=== PATIENT | female | born 1975 | race Caucasian/White ===

== ENCOUNTER 2017-06-30 22:00 | Emergency (ER) | payer SELFPAY ==
[~2017-06-30] VITALS: Ht 160 cm; Wt 79.4 kg
--- NOTE | 2017-06-30 22:10 | NUR ---
BB SELF; "BILAT EAR PAIN AND THROAT PAIN X 1 MONTH". PATIENT IS AFEBRILE. VSS
[2017-07-01] MEDS ORDERED: TRAMADOL HCL 50 MG TABLET PO ONE (00:30)
[2017-07-01] MEDS ORDERED: TRAMADOL HCL 50 MG TABLET ONE (00:37)
[2017-07-01 00:45] VITALS: BP 129/82
== END 2017-07-01 00:46 | disposition home or self-care (01) ==
LOC: ER 22:04
DX: H92.03 Otalgia, bilateral (principal); J02.9 Acute pharyngitis, unspecified; F32.9 Major depressive disorder, single episode, unspecified; F41.9 Anxiety disorder, unspecified; R51 Headache
CPT/HCPCS: 70450-TC; A4606; Z7610